=== PATIENT | female | born 2000 | race Caucasian/White ===

== ENCOUNTER → 2023-07-20 09:57 | Outpatient (REF) | payer OTHER, SELFPAY ==
[2023-07-23 10:48] LABS: Quantiferon Mitogen minus NIL 8.86 IU/mL; Quantiferon NIL 0.02 IU/mL; Quantiferon Plus TB1 minus NIL 0.01 IU/mL (0.00-0.34); Quantiferon Plus TB2 minus NIL 0.01 IU/mL (0.00-0.34); Quantiferon TB Gold Plus Negative (Negative)
== END ==
LOC: OHS 09:57
PROVIDERS: ATTENDING PHYSICIAN Nurse Practitioner Family
DX: Z23 Encounter for immunization (principal)
CPT/HCPCS: 36415; 86480

== ENCOUNTER → 2024-03-10 10:49 | Outpatient (REF) | payer BC, SELFPAY ==
[2024-03-10 11:15] LABS: % Basophils 0.8 % (0-2); % Eosinophils 8.8 % (0-6); % Immature Granulocytes 0.2 % (0-0.5); % Lymphocytes 33.8 % (20.5-51.1); % Monocytes 6.5 % (1.7-9.3); % Neutrophils 49.9 % (42.2-75.2); Absolute Eosinophils 0.4 10^3/uL (0-0.7); Absolute Lymphocytes 1.6 10^3/uL (1.2-3.4); Absolute Monocytes 0.3 10^3/uL (0.1-0.6); Absolute Neutrophils 2.4 10^3/uL (1.4-6.5); Hematocrit 43.4 % (37.0-47.0); Hemoglobin 14.6 g/dL (12.0-16.0); Mean Corp Hgb Conc. 33.6 g/dL (33.0-37.0); Mean Corpuscular Hgb 30.7 pg (27.0-31.0); Mean Corpuscular Volume 91.2 fL (81.0-99.0); Mean Platelet Volume 9.1 fL (7.4-10.4); Nucleated Red Blood Cells % 0 %; Platelet Count 232 10^3/uL (130-400); Red Blood Cell Count 4.76 10^6/uL (4.20-5.40); Red Cell Dist. Width 11.6 % (11.5-14.5); White Blood Cell Count 4.8 10^3/uL (4.8-10.8)
[2024-03-10 11:47] LABS: ALT (SGPT) 17 U/L (0-35); AST (SGOT) 22 U/L (14-36); Albumin 4.9 g/dl (3.5-5.0); Alkaline Phosphatase 34 U/L (38-126); Blood Urea Nitrogen 10 mg/dl (7-17); Calcium 9.7 mg/dl (8.4-10.2); Carbon Dioxide 30 mmol/L (22-30); Chloride 99 mmol/L (98-107); Glucose 89 mg/dl (70-99); HDL Cholesterol 74 mg/dl; Iron 225 ug/dl (37-170); LDL Cholesterol, Calculated 84 mg/dl; Potassium 4.4 mmol/L (3.5-5.1); Sodium 138 mmol/L (135-145); Total Bilirubin 0.8 mg/dl (0.2-1.3); Total Cholesterol 172 mg/dl (50-199); Total Protein 7.9 g/dl (6.3-8.2); Triglyceride 74 mg/dl (10-149); Very Low Density Lipoprotein 14 mg/dl (0-30); eGFR > 60.00
[2024-03-10 12:17] LABS: TSH Reflex To Free T4 0.93 uIU/ml (0.47-4.68)
== END ==
LOC: REG 10:49
PROVIDERS: ATTENDING PHYSICIAN Nurse Practitioner Adult Health
DX: E61.1 Iron deficiency (principal); Z00.00 Encounter for general adult medical examination without abnormal findings; F41.9 Anxiety disorder, unspecified
CPT/HCPCS: 36415; 80053; 80061; 83540; 84443; 85025

== ENCOUNTER → 2024-09-05 16:17 | Outpatient (REF) | payer BC, SELFPAY | LOC: CPAP 16:17 | PROVIDERS: ATTENDING PHYSICIAN Student in an Organized Health Care Education/Training Program | DX: Z01.419 Encounter for gynecological examination (general) (routine) without abnormal findings (principal) | CPT/HCPCS: 87491; 87591 ==